=== PATIENT | male | born 1960 | race Caucasian/White ===

== ENCOUNTER → 2017-12-19 07:36 | Outpatient (CLI) | payer OTHER, SELFPAY ==
[2017-12-19 07:44] VITALS: BP 117/75; PULSE 82; RESP 16; TEMP 36.7; O2SAT 97
[2017-12-19] MEDS: Midazolam 2 MG/2 ML VIAL IVP (08:30)
[2017-12-19] MEDS: Omnipaque 240 MG/ML 50 ML BTL IJ (08:35)
[2017-12-19 08:38] VITALS: BP 130/66; PULSE 90; RESP 15; O2SAT 98
[2017-12-19] MEDS: methylPREDNISolone ACETATE 40 MG/ML VIAL IJ (08:40)
--- NOTE | 2017-12-19 08:43 | DI.REPORT_ITS ---
SYMPTOM/DIAGNOSIS: CERVICAL RADICULOPATHY C-ARM FLUOROSCOPY CERVICAL SPINE: Fluoroscopy Time: 23.2 seconds Fluoroscopy was provided for guidance with cervical spine pain clinic injection. Please see procedure note for details.
--- NOTE | 2017-12-19 08:50 | PDOC.PAIN_ITS ---
Pain Clinic Procedure Note Patient Problems: Current Active Problems Problem Status Onset Cervical radiculitis Chronic Cervical Epidural Steroid Injection AMELIA SHERMAN has been referred to the [facility] for cervical epidural steroid injection. COMMENTS: Patient had medial branch blocks without relief. He had one cervical epidural steroid injection which helped but only very transiently. Patient has some central and foraminal stenosis on the left side most significantly at C5-6 Patient was interviewed and the medical record reviewed. There were no medical , pharmacologic, radiographic or other structural contraindications to attempting fluoroscopically guided epidural steroid injection. Risks and expected side effects as well as potential benefit of the procedure were reviewed and voiced concerns addressed. The printed consent form was signed and witnessed. Standard time-out procedure was performed. The patient was placed in the prone position on the fluoroscopy table and automated blood pressure cuff and pulse oximeter applied. The skin entry point for entering the epidural space by a midline C7-T1 interlaminar approach was identified under fluoroscopy and marked. Following thorough Chlorhexadine preparation of the skin and draping and 1% lidocaine infiltration of the skin entry point and subcutaneous tissues, an 17 gauge Tuohy needle was placed under fluoroscopic guidance and with loss of resistance technique into the epidural space. Upon needle placement and loss of resistance there were no paresthesiae or return of blood or CSF through the needle. An Arrow catheter was thread cephalad to the C 5 level {left} of midline. 1ml of Omnipaque 240 were injected with clear epidural spread in the A/P, lateral and oblique views. 80mg Depomedrol with 1ml sterile normal saline were injected through the catheter with no unusual discomfort expressed. Vital signs were stable throughout the procedure and were as recorded in the docflowsheet by the nursing staff. If given, dosages of intravenous drugs for anxiolysis and analgesia were documented in MAR. Follow up plans and appointments were discussed. Post procedure instruction was given as documented in nursing documentation and having met discharge criteria and was discharged from the [facility]. COMMENTS: Versed 2 mg. Patient will follow-up in the office if he is not improving consider surgical evaluation. Would not repeat unless he has several months relief. He is also complaining of low back and left lower extremity pain. We will have him back in the office for evaluation. CC: Ilene Allen
== END ==
PROVIDERS: PCP Physician Assistant Medical; Visit Provider Anesthesiology Pain Medicine
DX: M54.12 Radiculopathy, cervical region (principal); G89.29 Other chronic pain
CPT/HCPCS: 62321; 99152; 72040; J1030; J2250; J3010; Q9967

== ENCOUNTER → 2017-12-28 08:56 | Outpatient (REF) | payer MEDICAID, SELFPAY ==
[2017-12-28 21:03] LABS: ALT 44 U/L (12-78); AST 22 U/L (15-37); Albumin 3.5 g/dL (3.4-5.0); Alkaline Phosphatase 82 U/L (46-116); Anion Gap 6.7 mmol/L (3-11); BUN 6 mg/dL (7-18); Bilirubin, Total 0.3 mg/dL (0.2-1.0); CO2 28.3 mmol/L (21.0-32.0); CREATININE 0.85 mg/dL (0.70-1.30); Calcium 8.2 mg/dL (8.5-10.1); Chloride 103 mmol/L (98-107); Glucose 72 mg/dL (70-100); Potassium 4.7 mmol/L (3.5-5.1); Sodium 138 mmol/L (136-145)
[2017-12-28 21:32] LABS: GGT 125 U/L (15-85)
== END ==
LOC: NCHCN 08:56
PROVIDERS: PCP Physician Assistant Medical; Visit Provider Physician Assistant Medical
DX: R79.89 Other specified abnormal findings of blood chemistry (principal)
CPT/HCPCS: 80053; 82977

== ENCOUNTER 2018-02-22 09:11 | Outpatient (REF) | payer BC, MEDICAID, SELFPAY ==
[2018-02-22 20:52] LABS: ALT 122 U/L (12-78); AST 103 U/L (15-37); Albumin 3.7 g/dL (3.4-5.0); Alkaline Phosphatase 98 U/L (46-116); Anion Gap 9.5 mmol/L (3-11); BUN 8 mg/dL (7-18); Bilirubin, Total 0.9 mg/dL (0.2-1.0); CO2 27.5 mmol/L (21.0-32.0); CREATININE 0.98 mg/dL (0.70-1.30); Calcium 9.4 mg/dL (8.5-10.1); Chloride 99 mmol/L (98-107); Glucose 86 mg/dL (70-100); Potassium 5.3 mmol/L (3.5-5.1); Sodium 136 mmol/L (136-145); Total Protein 7.4 g/dL (6.4-8.2)
== END 2018-02-22 09:31 ==
LOC: NCHCN 09:11
PROVIDERS: PCP Physician Assistant Medical; Visit Provider Physician Assistant Medical
DX: I10 Essential (primary) hypertension (principal)
CPT/HCPCS: 80053

== ENCOUNTER 2018-04-25 09:04 | Outpatient (REF) | payer MEDICAID, SELFPAY ==
[2018-04-25 21:30] LABS: ALT 71 U/L (12-78); AST 57 U/L (15-37); Albumin 4.1 g/dL (3.4-5.0); Alkaline Phosphatase 75 U/L (46-116); BUN 8 mg/dL (7-18); Bilirubin, Total 0.4 mg/dL (0.2-1.0); CREATININE 0.88 mg/dL (0.70-1.30); Calcium 9.1 mg/dL (8.5-10.1); Chloride 99 mmol/L (98-107); Glucose 129 mg/dL (70-100); Potassium 3.7 mmol/L (3.5-5.1); Sodium 137 mmol/L (136-145); Total Protein 7.8 g/dL (6.4-8.2)
[2018-04-25 21:31] LABS: Abs Immature Grans 0.01 k/cumm (0.0-0.09); Absolute Basophil Count 0.06 k/cumm (0.0-0.2); Absolute Eosinophil Count 0.05 k/cumm (0.0-0.7); Absolute Neutrophil Count 4.41 k/cumm (1.2-6.7); Eosinophils % 0.8; HCT 42.7 % (40.0-50.0); HGB 14.5 g/dL (13.5-17.5); Immature Grans % 0.2; Lymphocytes % 14.7; Mean Corpuscular Hemoglobin 31.6 pg (27.0-33.0); Mean Platelet Volume 10.7 fL (8.0-11.0); Monocytes % 11.4; Neutrophils % 71.9; Platelet Count 203 x1000/uL (130-400); RBC 4.59 m/cumm (4.50-6.00); RBC Distribution Width 13.2 % (11.8-14.1); White Blood Cell Count 6.13 k/cumm (4.4-10.8)
== END 2018-04-25 09:24 ==
LOC: NCHCN 09:04
PROVIDERS: PCP Physician Assistant Medical; Visit Provider Physician Assistant Medical
DX: M54.16 Radiculopathy, lumbar region (principal); Z01.818 Encounter for other preprocedural examination
CPT/HCPCS: 80053; 85025

== ENCOUNTER 2018-08-17 13:15 | Outpatient (REF) | payer MEDICAID, SELFPAY ==
[2018-08-17 19:33] LABS: Hemoglobin A1C 5.7 % (4.5-6.2)
== END 2018-08-17 13:35 ==
LOC: NCHCN 13:15
PROVIDERS: PCP Physician Assistant Medical; Visit Provider Physician Assistant Medical
DX: R73.9 Hyperglycemia, unspecified (principal); I10 Essential (primary) hypertension
CPT/HCPCS: 80053; 83036

== ENCOUNTER 2018-09-07 10:01 | Outpatient (REF) | payer MEDICAID, SELFPAY ==
[2018-09-07 20:47] LABS: ALT 81 U/L (12-78); AST 66 U/L (15-37); Albumin 3.8 g/dL (3.4-5.0); Alkaline Phosphatase 88 U/L (46-116); Anion Gap 12.5 mmol/L (3-11); BUN 7 mg/dL (7-18); Bilirubin, Total 0.4 mg/dL (0.2-1.0); CO2 23.5 mmol/L (21.0-32.0); CREATININE 0.97 mg/dL (0.70-1.30); Calcium 8.9 mg/dL (8.5-10.1); Chloride 101 mmol/L (98-107); Glucose 116 mg/dL (70-100); Potassium 4.2 mmol/L (3.5-5.1); Sodium 137 mmol/L (136-145); Total Protein 7.6 g/dL (6.4-8.2)
== END 2018-09-07 10:21 ==
LOC: NCHCN 10:01
PROVIDERS: PCP Physician Assistant Medical; Visit Provider Physician Assistant Medical
DX: I10 Essential (primary) hypertension (principal)
CPT/HCPCS: 80053

== ENCOUNTER 2019-09-08 10:55 | Emergency (ER) | payer MEDICAID, SELFPAY ==
[2019-09-08] VITALS (16 sets, daily range): BP systolic 147–184; BP diastolic 76–109; PULSE 85–107; RESP 14–20; TEMP 37.3–37.9; O2SAT 95–97
[2019-09-08] MEDS: Normal Saline Flush 10 ML SYR IVP (11:15)
--- NOTE | 2019-09-08 11:16 | ED.GENADUL_ITS ---
Discharge Plan Disposition Patient Disposition: HOME Condition: Improving Discharge Details Chief Complaint: ETOHWithdr Clinical Impression: Alcohol withdrawal Primary Care Provider: Ilene Allen ED Provider: Anali Patricio Home Meds and New Rx's Prescriptions: New ondansetron HCl [Zofran] 4 mg tablet 4 mg PO Q8H PRN (Reason: nausea and vomiting) Qty: 14 RF: 0 No Action chlordiazepoxide HCl 25 mg Capsule 25 mg PO .Q6HRS PRNRF: 0 Discharge Instructions Instructions: Alcohol Withdrawal (ED) Additional Instructions: Take medications as directed. I am giving you nausea medication Zofran to take for nausea vomiting, also take the chlordiazepoxide every 6 hours as needed as directed for previous prescription. Do not take this medication with alcohol. You need to call [facility] facility yourself to be admitted. If they need any lab work or COVID-19 test results they can then get them from the respiratory care faculty named Neyda will be happy to fax the results to them. Follow up with primary care provider in 3-5 days. Return to ED sooner if any worsening or concerns. Increase oral fluids. Eat well, try to remain hydrated. Try Gatorade or similar sports drink. Referrals: Ilene Allen PA [Primary Care Provider] - Medical Decision Making 59-year-old male presents with alcohol withdrawal. He states that he was seen at [facility] yesterday and was sent home with Librium prescription. He was vomiting all night last night, is somewhat tremulous, slight anxiety and seeing white swirly's. Denies any hematochezia or hematemesis no abdominal pain no chest pain no shortness of breath no fever. He has not taken any of the chlordiazepoxide prescription. He has a history of alcohol abuse and admits to 20 beers daily x20 years. He had 1 beer 1 hour prior to arrival to help with the symptoms. At this time he is alert and oriented and cooperative. Care management rounding in department, informed care management about patient and his request for rehab. women's swim coach called by staffing account manager. 1129: Banana bag ordered, normal saline 1 L wide open at this time. Patient needs COVID-19 testing prior to being accepted into [facility] for rehab. COVID-19 ordered placed patient also has a temp of 37.9 but denies any respiratory symptoms. 1252: Patient's vital signs are improving, his heart rate is down to 94, blood pressure is 159/71. He is feeling much improved no further vomiting noted. Discussed plan of care with case management to who reports that if he is admitted to [facility] she can fax labs and Wong testing to them if needed. At this time patient has to be voluntarily willing to go to [facility] and must take the initiative to contact the facility himself. His labs at this time show slightly hyponatremic at 130 potassium is 3.3 his liver enzymes are elevated. At this time I feel it is safe for him to be discharged home and I will stressed the importance of taking the Librium as prescribed and not taking medication with alcohol. I also spoke with the power and recovery shift engineer who is going to follow-up with patient. Patient discharged home, spoke with his regarding home care for patient. Discussed Zofran nausea medication and Librium, verbalized understanding. Discussed red flags and strict return instructions given. Plan is to have patient self follow-up with [facility] facility. This text was generated using MyNext[employer] dictation system, please disregard any oddities of phrase or misspellings. HPI General Mode of arrival: ambulatory . Date/Time Provider Initiated Documentation: 09/08/19 10:57 . Limitations to Documentation: no limitations . Information obtained by: patient . HPI Narrative: 59-year-old male presents with alcohol withdrawal. He states that he was seen at [facility] yesterday and was sent home with Librium prescription. He was vomiting all night last night, is somewhat tremulous, slight anxiety and seeing white swirly's. Denies any hematochezia or hematemesis no abdominal pain no chest pain no shortness of breath no fever. He has not taken any of the chlordiazepoxide prescription. He has a history of alcohol abuse and admits to 20 beers daily x20 years. He had 1 beer 1 hour prior to arrival to help with the symptoms. At this time he is alert and oriented and cooperative. Related Data Home Medications Medication Instructions Recorded Confirmed chlordiazepoxide HCl 25 mg PO .Q6HRS PRN 09/08/19 09/08/19 ondansetron HCl [Zofran] 4 mg PO Q8H PRN #14 tab 09/08/19 Previous Rx's Medication Instructions Recorded ondansetron HCl [Zofran] 4 mg PO Q8H PRN #14 tab 09/08/19 Allergies Allergy/AdvReac Type Severity Reaction Status Date / Time KRISTIAN Inhibitors Allergy Severe swelling Unverified 09/08/19 11:06 mouth tongue Sulfa (Sulfonamide Allergy Intermediate Skin Rash Unverified 09/08/19 11:06 Antibiotics) gabapentin AdvReac Intermediate Other (See Unverified 09/08/19 11:06 Comment) General Stated Complaint: ETOHWithdr CHIOMA: 2 Review of Systems Narrative: Constitutional: Negative for weight loss, alert and oriented, well groomed, normal body habitus, appears comfortable. HEENT: Denies trauma, headaches, blurry vision, nasal discharge, sore throat, trouble swallowing. Chest: Denies chest pain, palpitations, irregular rhythm, hypertension. Respiratory: Denies Shortness of breath, cough, hemoptysis. GI: Denies abdominal pain, diarrhea, constipation. Positive nausea vomiting. : Denies dysuria, hematuria, flank pain, rectal bleeding. Neuro: Denies blurry vision, weakness, syncope, or facial numbness. Slight visual disturbances, minimal tremors noted to the upper extremities. Hematologic: Denies easy bruising, intolerance to heat or cold, hair loss. Psychiatric Psychiatric: Reports as per HPI and Reports [facility] Medical History Alcoholism Anxiety Chronic low back pain Depression Ear disorder Ganglion cyst HTN (hypertension) Lumbar radiculopathy Neck pain Pharyngitis Psoriasis Tobacco dependency Surgical History cyst removal from ear ganglion cyst removal Social History Smoking/Tobacco Use Status: Former Tobacco Use Alcohol Intake: current Alcohol Intake frequency: 3 or more drinks per day Alcohol type: beer and hard liquor Drug use: Never Exam Narrative Exam Narrative: Constitutional: Alert and oriented x3. Appears stated age. Normal body habitus. Head: Normocephalic, no trauma. Eyes: Pupils PERRLA, Red reflex noted, EOM's intact. Eyelids symmetrical without lesions, discharge, or swelling. ENT: Bilateral TM's WNL, External ear normal to inspection, no mastoid TTP, swelling, or erythema, Nasal turbinates WNL, no nasal discharge. Normal dentition, Posterior pharynx WNL, no exudate. Chest: Mild tachycardia at a rate of 107 normal S1, S2, distal pulses intact. Hypertensive upon arrival blood pressure 184/109 Resp: Lungs clear to auscultation bilaterally, no wheezes, rales, or rhonchi. Musculoskeletal: Normal gait, 5/5 strength to all four extremities. Mild tremors noted to bilateral upper extremities. Skin: Dry lower lip chin like plaques most likely eczema type rash noted to extremities and face. Capillary refill less than 2 sec. Neurologic: Cranial nerves II-XII intact. Alert and oriented x 3. DTR's intact. Hematologic/Lymphatic: No ecchymosis, no lymphadenopathy. Course Vital Signs Vital signs: Vital Signs Temperature 37.9 C H 09/08/19 11:00 Pulse 107 H 09/08/19 11:00 Respiratory Rate 16 09/08/19 11:00 Blood Pressure 184/109 H 09/08/19 11:00 Pulse Oximetry 97 09/08/19 11:00 Temperature 37.9 C H 09/08/19 11:00 Temperature Source Skin 09/08/19 11:00 Pulse 107 H 09/08/19 11:00 Respiratory Rate 16 09/08/19 11:00 Respiratory Effort Non-Labored 09/08/19 11:00 Blood Pressure 184/109 H 09/08/19 11:00 Blood Pressure Position Supine 09/08/19 11:00 Pulse Oximetry 97 09/08/19 11:00 Oxygen Delivery Method Room Air 09/08/19 11:00 Oxygen Flow Rate 0 09/08/19 11:00 Pain Level 0 09/08/19 11:00
[2019-09-08] MEDS: Ondansetron 4 MG/2 ML VIAL IVP (11:20)
[2019-09-08] MEDS: Normal Saline 1,000 ML 1000 ML IV (11:20)
[2019-09-08 11:24] LABS: Abs Immature Grans 0.01 k/cumm (0.0-0.09); Absolute Lymphocyte Count 0.37 k/cumm (1.2-3.4); Absolute Monocyte Count 0.72 k/cumm (0.11-0.7); Absolute Neutrophil Count 2.98 k/cumm (1.2-6.7); HCT 37.7 % (40.0-50.0); HGB 13.2 g/dL (13.5-17.5); Immature Grans % 0.2 %; Lymphocytes % 9.1; Mean Corpuscular Hemoglobin 31.7 pg (27.0-33.0); Mean Corpuscular Volume 90.4 fL (80-95); Mean Platelet Volume 9.9 fL (8.0-11.0); Monocytes % 17.6; Neutrophils % 73.1; Platelet Count 105 x1000/uL (130-400); RBC 4.17 m/cumm (4.50-6.00); RBC Distribution Width 13.1 % (11.8-14.1); White Blood Cell Count 4.08 k/cumm (4.4-10.8)
[2019-09-08 11:37] LABS: ALT 114 U/L (16-63); AST 92 U/L (15-37); Albumin 3.3 g/dL (3.4-5.0); Alkaline Phosphatase 149 U/L (46-116); Anion Gap 10.4 mmol/L (3-11); BUN 8 mg/dL (7-18); Bilirubin, Total 0.4 mg/dL (0.2-1.0); CO2 25.6 mmol/L (21.0-32.0); Calcium 8.1 mg/dL (8.5-10.1); Chloride 94 mmol/L (98-107); ETHANOL BLOOD 63.1 mg/dL (<3); Glucose 147 mg/dL (74-106); Magnesium 1.7 mg/dL (1.8-2.4); Potassium 3.3 mmol/L (3.5-5.1); Sodium 130 mmol/L (136-145); Total Protein 7.9 g/dL (6.4-8.2)
[2019-09-08] MEDS: MAGNESIUM SULFATE 8.12 MEQ, MULTIVITAMIN 10 ML, THIAMINE 100 MG, FOLIC ACID 1 MG in Nor... 999 MG IV (12:04)
[2019-09-08] MEDS: LORazepam 2 MG/ML VIAL 0.5 MG IVP (12:55)
[2019-09-10 13:37] LABS: COVID-19 RT-PCR UVMMC Result Negative (Negative)
== END 2019-09-08 13:05 | disposition home or self-care (01) ==
PROVIDERS: Emergency Provider Registered Nurse Emergency; PCP Physician Assistant Medical
DX: F10.230 Alcohol dependence with withdrawal, uncomplicated (principal); E87.1 Hypo-osmolality and hyponatremia; E87.6 Hypokalemia; R74.8 Abnormal levels of other serum enzymes; I10 Essential (primary) hypertension
CPT/HCPCS: 36415; 80053; 96361; 96365; 96375; 99284; U0003; 80320; 83735; 85025; J2060; J2405

== ENCOUNTER 2019-09-12 14:32 | Outpatient (REF) | payer MEDICAID, SELFPAY ==
[2019-09-12 19:33] LABS: ALT 62 U/L (16-63); AST 41 U/L (15-37); Albumin 3.1 g/dL (3.4-5.0); Alkaline Phosphatase 106 U/L (46-116); Anion Gap 8.9 mmol/L (3-11); BUN 14 mg/dL (7-18); Bilirubin, Total 0.3 mg/dL (0.2-1.0); CO2 26.1 mmol/L (21.0-32.0); CREATININE 1.17 mg/dL (0.70-1.30); Calcium 8.4 mg/dL (8.5-10.1); Chloride 97 mmol/L (98-107); Glucose 93 mg/dL (74-106); Potassium 3.9 mmol/L (3.5-5.1); Sodium 132 mmol/L (136-145); Total Protein 6.9 g/dL (6.4-8.2)
[2019-09-12 19:50] LABS: Prothrombin Time 9.8 sec (9.3-11.0)
[2019-09-12 19:54] LABS: HCT 38.8 % (40.0-50.0); HGB 13.4 g/dL (13.5-17.5); Mean Corp. HGB Concentration 34.5 g/dL (32.0-36.0); Mean Corpuscular Hemoglobin 31.7 pg (27.0-33.0); Mean Corpuscular Volume 91.7 fL (80-95); Mean Platelet Volume 11.5 fL (8.0-11.0); RBC 4.23 m/cumm (4.50-6.00); RBC Distribution Width 13.3 % (11.8-14.1); White Blood Cell Count 2.91 k/cumm (4.4-10.8)
[2019-09-12 20:04] LABS: Platelet Count 85 x1000/uL (130-400)
[2019-09-12 20:49] LABS: ESR 34 mm/hr (1-20)
== END 2019-09-12 14:52 ==
LOC: NCHCN 14:32
PROVIDERS: PCP Physician Assistant Medical; Visit Provider Nurse Practitioner Family
DX: R21 Rash and other nonspecific skin eruption (principal); R82.998 Other abnormal findings in urine
CPT/HCPCS: 80053; 85027; 85652; 86141; 85610; 87086

== ENCOUNTER 2020-01-21 10:43 | Outpatient (REF) | payer MEDICAID, SELFPAY ==
[2020-01-23 13:55] LABS: Chlamydia Result Negative (Negative); GC Result Negative (Negative)
== END 2020-01-21 11:03 ==
LOC: NCHCN 10:43
PROVIDERS: PCP Physician Assistant Medical; Visit Provider Physician Assistant Medical
DX: N50.811 Right testicular pain (principal); Z11.3 Encounter for screening for infections with a predominantly sexual mode of transmission
CPT/HCPCS: 80048; 87491; 87591; 85025; 87086

== ENCOUNTER 2020-07-22 19:10 | Outpatient (REF) | payer MEDICAID, SELFPAY ==
[2020-07-22 18:13] LABS: ALT 17 U/L (16-63); AST 16 U/L (15-37); Albumin 3.4 g/dL (3.4-5.0); Alkaline Phosphatase 85 U/L (46-116); Anion Gap 12.3 mmol/L (3-11); BUN 13 mg/dL (7-18); Bilirubin, Total 0.3 mg/dL (0.2-1.0); CO2 22.7 mmol/L (21.0-32.0); CREATININE 0.8 mg/dL (0.70-1.30); Calculated LDL 153 mg/dL (<100); Chloride 98 mmol/L (98-107); Cholesterol 213 mg/dL (<200); Glucose 88 mg/dL (74-106); HDL Cholesterol 50 mg/dL (40-60); Potassium 4.6 mmol/L (3.5-5.1); Sodium 133 mmol/L (136-145); Total Protein 8.2 g/dL (6.4-8.2); Triglyceride 54 mg/dL (<150)
[2020-07-22 22:57] LABS: ESR 67 mm/hr (<or=20)
[2020-07-23 16:52] LABS: CRP, High Sensitivity 9.35 mg/L (See Note)
[2020-07-26 15:22] LABS: ANA Interpretation Positive (Negative)
[2020-07-27 14:34] LABS: ANCA Interpretation Negative (Negative)
== END 2020-07-22 19:11 | disposition home or self-care (01) ==
LOC: NCHCN 19:10
PROVIDERS: PCP Physician Assistant Medical; Visit Provider Physician Assistant Medical
DX: I73.00 Raynaud's syndrome without gangrene (principal); M25.59 Pain in other specified joint; E78.89 Other lipoprotein metabolism disorders
CPT/HCPCS: 80053; 80061; 85652; 86141; 86255; 86038; 86431

== ENCOUNTER 2020-07-23 01:47 | Outpatient (CLI) | payer MEDICAID, SELFPAY ==
--- NOTE | 2020-07-23 | DI.RAD_ITS ---
EXAM: XR HIP LT COMPLETE AP PELVIS CLINICAL HISTORY: LT HIP PAIN, M25.552. TECHNIQUE: 2D digital imaging was performed. COMPARISON: No exams were available for comparison FINDINGS: There is no evidence of pelvic or hip fracture. Symmetrical mild narrowing of the hip space noted. No osteophytes. Vascular calcification in both femoral arteries is incidentally noted. IMPRESSION: DATA REPOSITORY: RADIATION DOSE DELIVERED:
== END 2020-07-23 02:07 ==
PROVIDERS: PCP Physician Assistant Medical; Visit Provider Physician Assistant Medical
DX: M25.552 Pain in left hip (principal)
CPT/HCPCS: 73502

== ENCOUNTER 2020-11-03 15:00 | Outpatient (REF) | payer MEDICAID, SELFPAY ==
[2020-11-03 20:25] LABS: Anion Gap 14.3 mmol/L (3-11); BUN 12 mg/dL (7-18); CO2 21.7 mmol/L (21.0-32.0); CREATININE 0.9 mg/dL (0.70-1.30); Calcium 9.2 mg/dL (8.5-10.1); Chloride 101 mmol/L (98-107); Glucose 82 mg/dL (74-106); Potassium 4.1 mmol/L (3.5-5.1); Sodium 137 mmol/L (136-145); TSH 3.19 uIU/mL (0.36-3.74)
[2020-11-04 17:18] LABS: Thyroglobulin Antibody <15 U/mL (<=60); Thyroperoxidase Antibody 34 U/mL (<=60)
== END 2020-11-03 15:01 | disposition home or self-care (01) ==
LOC: NCHCN 15:00
PROVIDERS: PCP Physician Assistant Medical; Visit Provider Physician Assistant Medical
DX: E04.1 Nontoxic single thyroid nodule (principal); I10 Essential (primary) hypertension
CPT/HCPCS: 80048; 86376; 84443

== ENCOUNTER 2021-01-27 14:23 | Outpatient (REF) | payer MEDICAID, SELFPAY ==
[2021-01-27 19:51] LABS: ALT 23 U/L (16-63); AST 16 U/L (15-37); Abs Immature Grans 0.02 10^3/uL (0.0-0.06); Absolute Basophil Count 0.04 10^3/uL (0.0-0.2); Absolute Eosinophil Count 0.11 10^3/uL (0.0-0.7); Absolute Lymphocyte Count 1.53 10^3/uL (1.2-3.4); Absolute Monocyte Count 0.63 10^3/uL (0.1-0.8); Absolute Neutrophil Count 4.63 10^3/uL (1.2-6.7); Albumin 3.8 g/dL (3.4-5.0); Alkaline Phosphatase 87 U/L (46-116); Anion Gap 12.9 mmol/L (3-11); BUN 17 mg/dL (7-18); Basophils % 0.6; Bilirubin, Total 0.4 mg/dL (0.2-1.0); CO2 23.1 mmol/L (21.0-32.0); CREATININE 1.1 mg/dL (0.70-1.30); Calcium 8.9 mg/dL (8.5-10.1); Calculated LDL 110 mg/dL (<100); Chloride 100 mmol/L (98-107); Cholesterol 179 mg/dL (<200); Eosinophils % 1.6; Glucose 88 mg/dL (74-106); HCT 37.8 % (40.0-50.0); HDL Cholesterol 60 mg/dL (40-60); HGB 12.6 g/dL (13.5-17.5); Immature Grans % 0.3; MCH 28.6 pg (27.0-33.0); MCHC 33.3 % (32.0-36.0); MCV 85.9 fL (80-95); MPV 10.2 fL (8.0-11.0); Magnesium 1.8 mg/dL (1.8-2.4); Monocytes % 9.1; Neutrophils % 66.4; Nucleated RBC 0 %; Platelet Count 275 10^3/uL (130-400); Potassium 4.1 mmol/L (3.5-5.1); RDW 13.9 % (11.8-14.1); RDW-SD 44.2 fL; Sodium 136 mmol/L (136-145); Total Protein 7.8 g/dL (6.4-8.2); Triglyceride 45 mg/dL (<150); WBC 6.96 10^3/uL (4.4-10.8)
[2021-01-29 11:29] LABS: Lyme Ab w Rflx to Lyme Confirm Negative (Negative)
[2021-01-29 19:18] LABS: Anaplasma phagocytophilum Negative (Negative); B. miyamotoi PCR Negative (Negative); Babesia divergens/MO-1 Negative (Negative); Babesia duncani Negative (Negative); Babesia microti Negative (Negative); Ehrlichia chaffeensis Negative (Negative); Ehrlichia ewingii/canis Negative (Negative); Ehrlichia muris eauclairensis Negative (Negative)
== END 2021-01-27 14:24 | disposition home or self-care (01) ==
LOC: NCHCN 14:23
PROVIDERS: PCP Physician Assistant Medical; Visit Provider Physician Assistant Medical
DX: M79.604 Pain in right leg (principal); M79.605 Pain in left leg
CPT/HCPCS: 80053; 80061; 87798; 83735; 85025; 86618

== ENCOUNTER 2021-08-10 14:55 | Outpatient (REF) | payer MEDICAID, SELFPAY ==
[2021-08-10 14:20] LABS: ALT 25 U/L (16-63); AST 17 U/L (15-37); HDL Cholesterol 58 mg/dL (40-60); LDL CHOLESTEROL 107 mg/dL (<100)
[2021-08-10 14:34] LABS: Creatine Kinase 113 U/L (39-308)
== END 2021-08-10 14:56 | disposition home or self-care (01) ==
LOC: NCHCN 14:55
PROVIDERS: PCP Physician Assistant Medical; Visit Provider Nurse Practitioner Family
DX: I73.9 Peripheral vascular disease, unspecified (principal); I25.10 Atherosclerotic heart disease of native coronary artery without angina pectoris
CPT/HCPCS: 82550; 83721; 83718; 84450; 84460

== ENCOUNTER 2021-10-19 14:57 | Outpatient (REF) | payer BC, SELFPAY ==
[2021-10-19 15:42] LABS: ALT 27 U/L (16-63); AST 14 U/L (15-37); Albumin 3.9 g/dL (3.4-5.0); Alkaline Phosphatase 95 U/L (46-116); BUN 18 mg/dL (7-18); Bilirubin, Total 0.3 mg/dL (0.2-1.0); CREATININE 1.2 mg/dL (0.70-1.30); Calcium 9.2 mg/dL (8.5-10.1); Calculated LDL 73 mg/dL (<100); Chloride 101 mmol/L (98-107); Cholesterol 141 mg/dL (<200); Glucose 101 mg/dL (74-106); HDL Cholesterol 59 mg/dL (40-60); Potassium 4.3 mmol/L (3.5-5.1); Sodium 135 mmol/L (136-145); Total Protein 8.3 g/dL (6.4-8.2); Triglyceride 49 mg/dL (<150)
[2021-10-19 16:04] LABS: Hemoglobin A1C 6.2 % (<5.7)
[2021-10-19 16:21] LABS: FREE T4 0.94 ng/dL (0.76-1.46)
[2021-10-19 23:05] LABS: T3, Total 119 ng/dL (97-169)
== END 2021-10-19 14:58 | disposition home or self-care (01) ==
LOC: NCHCN 14:57
PROVIDERS: PCP Physician Assistant Medical; Visit Provider Physician Assistant Medical
DX: E04.1 Nontoxic single thyroid nodule (principal); R73.03 Prediabetes; E78.5 Hyperlipidemia, unspecified
CPT/HCPCS: 80053; 80061; 86376; 83036; 84439; 84443; 84480

== ENCOUNTER 2021-10-27 16:17 | Outpatient (REF) | payer BC, SELFPAY ==
[2021-10-27 23:04] LABS: Thyroglobulin Antibody <15 U/mL (<=60); Thyroperoxidase Antibody 39 U/mL (<=60)
== END 2021-10-27 16:18 | disposition home or self-care (01) ==
LOC: NCHCN 16:17
PROVIDERS: PCP Physician Assistant Medical; Visit Provider Physician Assistant Medical
DX: E04.1 Nontoxic single thyroid nodule (principal)
CPT/HCPCS: 86376

== ENCOUNTER 2022-01-21 10:01 | Outpatient (REF) | payer BC, SELFPAY ==
[2022-01-21 15:25] LABS: Anion Gap 9.7 mmol/L (3-11); BUN 14 mg/dL (7-18); CO2 25.3 mmol/L (21.0-32.0); CREATININE 1.1 mg/dL (0.70-1.30); Chloride 100 mmol/L (98-107); Ferritin 141 ng/mL (26-388); Glucose 97 mg/dL (74-106); Magnesium 1.8 mg/dL (1.8-2.4); Potassium 3.8 mmol/L (3.5-5.1); Sodium 135 mmol/L (136-145); TSH 3.94 uIU/mL (0.36-3.74)
== END 2022-01-21 10:02 | disposition home or self-care (01) ==
LOC: NCHCN 10:01
PROVIDERS: PCP Physician Assistant Medical; Visit Provider Physician Assistant Medical
DX: R25.2 Cramp and spasm (principal)
CPT/HCPCS: 80048; 82728; 83735; 84443

== ENCOUNTER 2022-05-03 08:25 | Outpatient (REF) | payer BC, MEDICAID, SELFPAY ==
[2022-05-03 16:34] LABS: FREE T4 1.25 ng/dL (0.76-1.46); TSH 2.65 uIU/mL (0.36-3.74)
[2022-05-07 02:02] LABS: Testosterone, Total 390 ng/dL (240-950)
== END 2022-05-03 08:26 | disposition home or self-care (01) ==
LOC: NCHCN 08:25
PROVIDERS: PCP Physician Assistant Medical; Visit Provider Physician Assistant Medical
DX: R73.03 Prediabetes (principal); R94.6 Abnormal results of thyroid function studies; R53.83 Other fatigue
CPT/HCPCS: 82533; 84403; 83036; 84439; 84443

== ENCOUNTER 2024-10-04 17:08 | Outpatient (REF) | payer BC, SELFPAY ==
[2024-10-04 18:06] LABS: Abs Immature Grans 0.01 10^3/uL (0.0-0.06); Absolute Basophil Count 0.04 10^3/uL (0.0-0.2); Absolute Eosinophil Count 0.14 10^3/uL (0.0-0.7); Absolute Lymphocyte Count 1.19 10^3/uL (1.2-3.4); Absolute Monocyte Count 0.62 10^3/uL (0.1-0.8); Absolute Neutrophil Count 4.09 10^3/uL (1.2-6.7); Basophils % 0.7 %; Eosinophils % 2.3 %; HCT 38.1 % (40.0-50.0); HGB 12.8 g/dL (13.5-17.5); Immature Grans % 0.2 %; Lymphocytes % 19.5 %; MCH 30.9 pg (27.0-33.0); MCHC 33.6 % (32.0-36.0); MCV 92 fL (80-95); MPV 10.1 fL (8.0-11.0); Monocytes % 10.2 %; Neutrophils % 67.1 %; Platelet Count 223 10^3/uL (130-400); RBC 4.14 10^6/uL (4.36-5.78); RDW 12.7 % (11.8-14.1); RDW-SD 42.6 fL; WBC 6.09 10^3/uL (4.4-10.8)
[2024-10-04 18:41] LABS: Calculated LDL 89 mg/dL (<100); Cholesterol 158 mg/dL (<200); Folate 8.3 ng/mL (8.6-20.0); HDL Cholesterol 62 mg/dL (>or=40); TSH 2.74 uIU/mL (0.36-3.74); Triglyceride 38 mg/dL (<150); Vitamin B12 248 pg/mL (193-986)
== END 2024-10-04 17:09 | disposition home or self-care (01) ==
LOC: NCHCN 17:08
PROVIDERS: PCP Physician Assistant Medical; Visit Provider Family Medicine
DX: R42 Dizziness and giddiness (principal); E03.9 Hypothyroidism, unspecified; E04.1 Nontoxic single thyroid nodule; E78.5 Hyperlipidemia, unspecified
CPT/HCPCS: 80061; 82607; 82746; 84443; 85025

== ENCOUNTER 2024-12-11 01:34 | Outpatient (CLI) | payer OTHER, MEDICARE, SELFPAY ==
--- NOTE | 2024-12-11 | DI.CT_ITS ---
Exam(s) CT CHEST W EXAM: CT CHEST W CLINICAL HISTORY: ABNL SCREENING CT CHEST, R93.89, atelectasis rml. TECHNIQUE: Multi planar reconstructions were performed. CONTRAST MATERIAL: Omnipaque 350; 70 cc COMPARISON: CT CT CHEST LUNG CANCER SCREEN from 11/21/[address] CHEST LUNG CANCER SCREEN from 11/21/2024 FINDINGS: CHEST: LUNGS: There are subpleural increased markings now evident in the left lower lobe involving the posterior and lateral basal segments, not evident on the prior CT scans of 11/21/2023 and 11/21/2024. No new left lung nodules. No pleural effusions. On the right side there is a some atelectasis in the right middle lobe again noted, similar to the scan of 11/21/2024 and not evident on the prior scan of November 2023. There are no lung nodules. There does appear to be an element of narrowing at the proximal aspect of the right middle lobe bronchus, possibly significant.. MEDIASTINUM: There is no gross hilar nor mediastinal adenopathy but there appear to be slightly prominent lymph nodes in the inferior right hilum (series 2/image 33). There is a wider than taller nodule in the left thyroid lobe which measures 2 x 1.2 cm. Requires ultrasound exam. There are no obvious nodules in the right lobe nor within the thyroid isthmus. CARDIAC: Heart size is normal. There is no pericardial effusion.Caliber of the thoracic aorta is within normal limits. No evidence of aortic dissection. There is significant coronary artery calcification left coronary artery VISUALIZED UPPER ABDOMEN:There are no significant adrenal masses. Spleen size normal. Small hypodensity in the right hepatic lobe probably benign cyst and another similar sub cm hypodensity noted in the anterior aspect of the left hepatic lobe. OSSEOUS: No significant osseous lesions.No fractures.. IMPRESSION: 1. There is mild subpleural infiltrate in left lower lobe basal segments. No associated pleural effusion. This finding was not evident on the recent CT scan. 2. There is some atelectasis of the right middle lobe 0 and there appears to be mild narrowing of the right middle lobe bronchus and possible small lymph nodes in the right hilum. This requires close follow-up including possible bronchoscopy to rule out bronchial neoplasm.. 3. No pleural effusion on either side.. RADIATION DOSE DELIVERED: 138.73mGy.cm Total DLP DATA REPOSITORY: All CT scans at this facility are submitted to the National Radiology Data Registry (NRDR) Dose Index Registry (DIR) with the [employer] (A[employer]). RADIATION OPTIMIZATION: All CT scans at this facility use at least one of these dose optimization techniques: automated exposure control; mA and/or kV adjustment per patient size (includes targeted exams where dose is matched to clinical indication); or iterative reconstruction.
[2024-12-11 13:52] LABS: Estimated GFR 83.52 (mL/min/1.73m2)
[2024-12-11] MEDS: Normal Saline - Diluent 50 ML VIAL IJ (14:07)
[2024-12-11] MEDS: Omnipaque 350 MG/ML 500 ML BTL-Imaging package 70 ML IJ (14:08)
== END 2024-12-11 01:54 ==
LOC: DI 01:34
PROVIDERS: PCP Physician Assistant Medical; Visit Provider Physician Assistant Medical
DX: R91.8 Other nonspecific abnormal finding of lung field (principal); J98.11 Atelectasis
CPT/HCPCS: 71260; 82565

== ENCOUNTER 2025-02-18 02:15 | Outpatient (CLI) | payer OTHER, MEDICARE, SELFPAY ==
--- NOTE | 2025-02-18 07:15 | DI.US_ITS ---
Exam(s) US NEEDLE LOCAL OTHER WO RAD EXAM: US NEEDLE LOCAL OTHER WO RAD CLINICAL HISTORY: left thyroid nodule,ULTRASOUND GUIDED BX,E04.1. COMPARISON: No exams were available for comparison TECHNIQUE: Ultrasound was provided for Dr. Zacarias for guidance with performing FNA left thyroid nodule. FINDINGS: Please see procedure note for details. DATA REPOSITORY:
--- NOTE | 2025-02-18 12:40 | PAPNONF_PTH ---
PATIENT: Jovan Jessica LOC: [facility] Prec[facility]ado#:[id number] AGE/SX: 64/M ROOM: RE02/18/[address]: Gay Pickett : 1960 BED: DIS: 02/18/2025 SPEC #: [id number] RECD: 02/18/25 12:48 STATUS: ANDREW RERiley #: [id number] NORI: 02/18/25 12:[address]: Gay Pickett DEPT: [facility] Cytology RECD BY: Daniella Caballero ENTERED: 02/18/25 12:49 SP TYPE: THOMAS TREADWELL DR: Ilene Allen Tissues: 1 - BODY FLUID CYTO-FINE NEEDLE [facility] Procedures: BODY FLUID CYTO-FINE NEEDLE ASPIRATE[facility] Comments: [id number] (PATH CONSULT FNA) (REFRIGERATED)
--- NOTE | 2025-02-18 13:09 | OPPNE_ITS ---
Date of service: 02/18/25 Time of Service: 13:09 Procedure Note Date of procedure: 02/18/25 Procedure: Ultrasound-guided FNA, left thyroid nodule, pathology present Surgeon/Proceduralist/Physician: Tee Zacarias Procedure Diagnosis: Left thyroid nodule, TR 4, 2.2 cm Procedure Indications: The patient has a left-sided thyroid nodule with the above characteristics. Options were explained to patient regarding further management. He elected to undergo the above procedure. Risks including bleeding, infection and need for further treatment were discussed at length. Written consent was obtained. The below was then performed. Procedure Description: The patient was positioned in a supine position with his neck slightly extended. He was prepped and draped in appropriate fashion and ultrasound used to localize the thyroid nodule on the left. 2% lidocaine with 1/100,000 epinephrine was injected into the skin and subcutaneous tissues overlying the medial aspect of the nodule, and then using ultrasound guidance, a 25-gauge needle was passed into the left thyroid nodule and moved [id number] to collect sample. Adequate cellularity was verified by pathology. 2 additional passes were then made for potential Afirma testing. This was again done under ultrasound guidance. A sterile dressing was applied after ensuring adequate hemostasis. The patient was then allowed to sit, stand, and ambulate. His vital signs remained stable. He will remove the bandage in a couple of hours and not replace it. He will c all with any signs of infection or any concerns. He may use Tylenol or ibuprofen for any discomfort. He will call if he does not hear from me within 7 days of having this biopsy. He had no further questions. He is comfortable with this plan.
== END 2025-02-18 02:35 ==
LOC: DI 02:16
PROVIDERS: PCP Physician Assistant Medical; Visit Provider Registered Nurse Maternal Newborn
DX: D44.0 Neoplasm of uncertain behavior of thyroid gland (principal)
CPT/HCPCS: 10005; 76942; 88104